=== PATIENT | male | born 1985 | race Caucasian/White ===

== ENCOUNTER 2019-06-18 13:18 | Emergency (ER) | payer OTHER ==
[~2019-06-18] VITALS: Ht 170.2 cm; Wt 85.5 kg
[2019-06-18 13:40] VITALS: BP 120/68
--- NOTE | 2019-06-18 14:49 | NUR ---
PT AMBULATED TO BED 3.
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
--- NOTE | 2019-06-18 15:48 | NUR ---
PA MARIE EVALUATING PT AT BEDSIDE.
[2019-06-18] MEDS ORDERED: KETOROLAC 60 MG/2 ML VIAL IM ONE (15:55)
--- NOTE | 2019-06-18 16:01 | NUR ---
PT TAKEN TO X RAY VIA W/C, ACCOMPANIED BY RAD TECT.
[2019-06-18 16:51] VITALS: BP 115/62
--- NOTE | 2019-06-18 16:51 | NUR ---
Patient discharged with v/s stable. Written and verbal after care instructions given and explained. Patient alert, oriented and verbalized understanding of instructions. Ambulatory with steady gait. All questions addressed prior to discharge. ID band removed. Patient advised to follow up with PMD. Rx of FLEXARIL & IBUPROFEN given. Patient educated on indication of medication including possible reaction and side effects. Opportunity to ask questions provided and answered.
== END 2019-06-18 16:51 | disposition home or self-care (01) ==
LOC: MED 13:18
DX: S86.812A Strain of other muscle(s) and tendon(s) at lower leg level, left leg, initial encounter (principal); M79.10 Myalgia, unspecified site; V89.2XXA Person injured in unspecified motor-vehicle accident, traffic, initial encounter; Y93.89 Activity, other specified; Y92.89 Other specified places as the place of occurrence of the external cause; Y99.8 Other external cause status
CPT/HCPCS: 73562; 96372; 99283; J1885